=== PATIENT | female | born 1990 | race African-American/Black ===

== ENCOUNTER 2016-09-22 16:36 | Emergency (ER) | payer OTHER ==
[2016-09-22 16:44] VITALS: BP 109/74; RESP 18; TEMP 97.3
[2016-09-22] MEDS ORDERED: IPRATROPIUM-ALBUTEROL 3 ML NEB INHALATION STA (16:58)
--- NOTE | 2016-09-22 17:21 | XR ---
EXAMINATION TYPE: XR chest 2V DATE OF EXAM: 09/22/2016 5:14 PM COMPARISON: NONE HISTORY: Short of breath TECHNIQUE: Frontal and lateral views of the chest are obtained. FINDINGS: Heart and mediastinum are normal. Lungs are clear. Diaphragm is normal. Bony thorax and so ft tissues appear normal. IMPRESSION: Normal chest
[2016-09-22 17:24] VITALS: PULSE 76
--- NOTE | 2016-09-22 17:33 | ED ---
General Adult HPI - General Chief complaint: Upper Respiratory Infection Stated complaint: Joint Pain/Chills/Difficulty Breathing Time Seen by Provider: 09/22/16 16:49 Source: patient, RN notes reviewed Mode of arrival: ambulatory Limitations: no limitations - History of Present Illness Initial comments: Is a 25-year-old female presents with cough and shortness of breath 4 days. Patient denies any measured fever but complained of fever symptoms and chills. Patient states she is also had a sore throat but this has improved. Patient states the cough is dry. Patient states she feels slightly short of breath especially when walking outside in the cold. Patient did not get a flu shot this year. Patient denies any sick contacts. Patient also complains of body aches and pain in the chest with breathing. Patient denies any recent abdominal pain, nausea/vomiting/diarrhea, back pain, numbness, tingling, hematuria, headache, or visual changes, or any other complaints. - Related Data Previous Rx's Medication Instructions Recorded Albuterol Inhaler [Ventolin Hfa 1 - 2 puff INHALATION Q6HR #1 09/22/16 Inhaler] inhaler Albuterol Nebulized [Ventolin 2.5 mg INHALATION Q4H 7 Days 09/22/16 Nebulized] methylPREDNISolone [Medrol Dose 4 mg PO DIRECTED #1 pack 09/22/16 Pack] Allergies Allergy/AdvReac Type Severity Reaction Status Date / Time No Known Allergies Allergy Verified 09/22/16 16:44 Review of Systems ROS Statement: Those systems with pertinent positive or pertinent negative responses have been documented in the HPI. ROS Other: All systems not noted in ROS Statement are negative. Past Medical History Past Medical History: No Reported History History of Any Multi-Drug Resistant Organisms: None Reported Past Surgical History: No Surgical Hx Reported Additional Past Surgical History / Comment(s): vaginal hematoma removed Past Psychological History: Anxiety Smoking Status: Current some day smoker Past Alcohol Use History: Occasional Past Drug Use History: None Reported General Exam - General Exam Comments Initial Comments: General: The patient is awake and alert, in no distress, and does not appear acutely ill. Eye: Pupils are equal, round and reactive to light, extra-ocular movements are intact. No nystagmus. There is normal conjunctiva bilaterally. No signs of icterus. Nose: Nasal turbinates erythematous and edematous. Clear of drainage. Mouth and throat: There are moist mucous membranes and no oral lesions. Neck: Anterior cervical chain lymphadenopathy present and is slightly tender. The neck is supple, there is no JVD. Cardiovascular: There is a regular rate and rhythm. No murmur, rub or gallop is appreciated. Respiratory: Lungs are clear to auscultation, respirations are non-labored, breath sounds are equal. No wheezes, stridor, rales, or rhonchi. Musculoskeletal: Normal ROM, no tenderness. Strength 5/5. Sensation intact. Radial Pulses equal bilaterally 2+. Neurological: A&O x 3. CN II-XII intact, There are no obvious motor or sensory deficits. Coordination appears grossly intact. Speech is normal. Skin: Skin is warm and dry and no rashes or lesions are noted. Psychiatric: Cooperative, appropriate mood & affect, normal judgment. Limitations: no limitations Course Vital Signs 09/22/16 09/22/16 09/22/16 16:41 17:18 17:27 Temperature 97.3 F L Pulse Rate 75 76 76 Respiratory 18 Rate Blood Pressure 109/74 O2 Sat by Pulse 98 Oximetry Medical Decision Making - Medical Decision Making This is a 25-year-old female presents with cough and shortness of breath 4 days. On physical exam lungs are clear to auscultation bilaterally. No wheezes. Patient is afebrile in the EC with O2 sats of 98% and respiratory rate of 18. Nasal turbinates are slightly erythematous and edematous but clear of drainage. Chest x-ray was done and reviewed showing: Normal chest. Reported by Dr. Cavanaugh. Discussed the results with patient. Patient received a DuoNeb treatment in the EC today and states "feels like a new person" after the treatment. Patient's lungs are clear to auscultation bilaterally after treatment. I discussed the patient will receive a prescription for Medrol Dosepak. I discussed that patient will receive a prescription for an albuterol inhaler and nebulizer machine/albuterol for nebulizer. I discussed return parameters. I discussed [id number] decongestants, Tylenol and Motrin as seen for any pain or fever symptoms. Discussed nasal rinses or nasal sprays. Discussed close follow-up with PCP. Discussed to return to the [facility] for any worsening symptoms or for any further concerns. Patient was receptive to this plan and patient will be discharged home. Disposition Clinical Impression: Upper respiratory infection Disposition: HOME SELF-CARE Condition: Good Instructions: Upper Respiratory Infection (ED) Additional Instructions: Please use medication as discussed. Please follow-up with family doctor in the next 2 days of symptoms have not improved. Please return to emergency room if the symptoms increase or worsen or for any other concerns. Prescriptions: Albuterol Inhaler [Ventolin Hfa Inhaler] 1 - 2 puff INHALATION Q6HR #1 inhaler Albuterol Nebulized [Ventolin Nebulized] 2.5 mg INHALATION Q4H 7 Days methylPREDNISolone [Medrol Dose Pack] 4 mg PO DIRECTED #1 pack Referrals: Alexx Alfredo MD [Primary Care Provider] - 1-2 days Time of Disposition: 17:44
== END 2016-09-22 17:50 | disposition home or self-care (01) ==
LOC: EC 16:36
DX: J06.9 Acute upper respiratory infection, unspecified (principal); F17.200 Nicotine dependence, unspecified, uncomplicated
CPT/HCPCS: 71020; 94640; 99284